=== PATIENT | female | born 1995 | race Caucasian/White ===

== ENCOUNTER 2017-02-11 00:36 | Emergency (ER) | payer OTHER ==
[~2017-02-11] VITALS: Ht 167.6 cm; Wt 54.9 kg
[~2017-02-11 00:36] MED LIST: NAPROSYN500 MG PO; NOHOMEMEDS
[2017-02-11 00:39] VITALS: BP 104/70
[2017-02-11 01:32] LABS: HEMATOCRIT 37.3 % (36.0-46.0); HEMOGLOBIN 12.9 G/DL (11.9-15.5); MCH 31.6 PG (29.0-34.0); MCHC 34.6 G/DL (30.0-36.0); MCV 91.4 FL (83-99); PLATELET COUNT 219 K/uL (156-360); RBC DIS.WIDTH-CV 12.6 % (11.8-14.6); RBC DIS.WIDTH-SD 42.3 % (39-53); RED BLOOD COUNT 4.08 M/uL (3.80-5.20); WHITE BLOOD COUNT 11.2 K/uL (4.1-10.2)
[2017-02-11 01:43] LABS: CHLORIDE 105 mEq/L (99-109); POTASSIUM 3.9 mEq/L (3.7-5.4); SODIUM 139 mEq/L (136-147)
[2017-02-11 01:44] LABS: GLUCOSE 127 mg/dL (70-99)
[2017-02-11 01:48] LABS: GFR ESTIMATE (CALCULATED) > 59 mL/min/
[2017-02-11 01:49] LABS: UREA NITROGEN (BUN) 14 mg/dL (9-23)
== END 2017-02-11 02:11 | disposition left against medical advice (07) ==
LOC: EME 00:36
DX: R11.10 Vomiting, unspecified (principal); Z53.21 Procedure and treatment not carried out due to patient leaving prior to being seen by health care provider
CPT/HCPCS: 80048; 81003; 85027